=== PATIENT | female | born 1990 | race Caucasian/White ===

== ENCOUNTER 2019-08-17 18:56 | Emergency (ER) | payer MEDICAID ==
[~2019-08-17] VITALS: Ht 185.4 cm; Wt 131.5 kg
[2019-08-17 20:21] LABS: URINE BILIRUBIN NEGATIVE (Negative); URINE BLOOD NEGATIVE (Negative); URINE CLARITY CLEAR; URINE COLOR YELLOW; URINE GLUCOSE-RANDOM NEGATIVE (Negative); URINE KETONES NEGATIVE (Negative); URINE LEUKOCYTES-REFLEX NEGATIVE (Negative); URINE NITRITE-REFLEX NEGATIVE (Negative); URINE PROTEIN NEGATIVE (Negative); URINE SPECIFIC GRAVITY 1.025 (1.005-1.030); URINE UROBILINOGEN 0.2 E.U./dl (0.2-1.0)
[2019-08-17 20:36] LABS: ABSOLUTE BASOPHILS 0.1 thou/uL (0.0-0.2); ABSOLUTE EOSINOPHILS 0.3 thou/uL (0.0-0.7); ABSOLUTE LYMPHOCYTES 3.3 thou/uL (0.8-5.3); ABSOLUTE MONOCYTES 0.6 thou/uL (0.0-1.2); ABSOLUTE NEUTROPHILS 7.9 thou/uL (1.6-8.1); EOSINOPHILS 2.2 %; HEMATOCRIT 39.6 % (37.0-47.0); HEMOGLOBIN 13.3 gm/dL (12.0-15.0); LYMPHOCYTES 27.3 %; MCH 26.5 pg (26.0-34.0); MCHC 33.6 g/dL (28.0-37.0); MCV 78.9 fL (80.0-100.0); MPV 8.4 fl. (7.2-11.1); NUCLEATED RBCS 0 /100WBC; PLATELET COUNT* 365 thou/uL (150-400); POLYS 64.5 %; RBC 5.02 mil/uL (4.20-5.00); RDW-CV 14.3 % (10.5-14.5); WBC 12.2 thou/uL (4.0-11.0)
[2019-08-17 20:48] LABS: CALCIUM 9.1 mg/dL (8.5-10.1); CREATININE 0.9 mg/dL (0.6-1.3); POTASSIUM 3.9 mmol/L (3.5-5.1)
[2019-08-17 20:52] LABS: ALBUMIN 3.4 g/dL (3.4-5.0); TOTAL BILIRUBIN 0.1 mg/dL (<0.1-1.0); TOTAL PROTEIN 8.4 g/dL (6.4-8.2)
[2019-08-17] MEDS ORDERED: TRAMADOL 50 MG50 MG PO (21:15)
[2019-08-17] MEDS ORDERED: GABAPENTIN 100100 MG PO (21:15)
[2019-08-17 21:32] VITALS: BP 143/80
== END 2019-08-17 21:33 | disposition home or self-care (01) ==
LOC: M.ERS 18:56
PROVIDERS: Emergency Medicine
DX: M79.672 Pain in left foot (principal)

== ENCOUNTER 2019-08-25 17:28 | Emergency (ER) | payer MEDICAID ==
[~2019-08-25] VITALS: Ht 185.4 cm; Wt 130.2 kg
[~2019-08-25 17:28] MED LIST: GABAPENTIN 100100 MG PO; TRAMADOL 50 MG50 MG PO
[2019-08-25] MEDS ORDERED: PREDNISONE 10 M10 MG PO (17:59)
[2019-08-25] MEDS ORDERED: NABUMETONE 750750 M1 PO (17:59)
[2019-08-25 18:11] VITALS: BP 133/90
== END 2019-08-25 18:12 | disposition home or self-care (01) ==
LOC: M.ERS 17:28
DX: M79.671 Pain in right foot (principal); M79.672 Pain in left foot

== ENCOUNTER 2019-09-01 10:06 | Emergency (ER) | payer MEDICAID ==
[~2019-09-01] VITALS: Ht 185.4 cm; Wt 130.6 kg
[~2019-09-01 10:06] MED LIST changes: +NABUMETONE 750750 M1 PO; +PREDNISONE 10 M10 MG PO
[2019-09-01 10:31] LABS: URINE BILIRUBIN NEGATIVE (Negative); URINE BLOOD NEGATIVE (Negative); URINE CLARITY CLEAR; URINE COLOR YELLOW; URINE GLUCOSE-RANDOM NEGATIVE (Negative); URINE KETONES NEGATIVE (Negative); URINE LEUKOCYTES-REFLEX NEGATIVE (Negative); URINE NITRITE-REFLEX NEGATIVE (Negative); URINE PROTEIN NEGATIVE (Negative); URINE UROBILINOGEN 0.2 E.U./dl (0.2-1.0)
[2019-09-01 10:36] LABS: ABSOLUTE BASOPHILS 0.1 thou/uL (0.0-0.2); ABSOLUTE EOSINOPHILS 0.1 thou/uL (0.0-0.7); ABSOLUTE LYMPHOCYTES 2.5 thou/uL (0.8-5.3); ABSOLUTE MONOCYTES 0.8 thou/uL (0.0-1.2); ABSOLUTE NEUTROPHILS 10.4 thou/uL (1.6-8.1); BASOPHILS 0.5 %; EOSINOPHILS 0.8 %; HEMATOCRIT 43.6 % (37.0-47.0); HEMOGLOBIN 14.6 gm/dL (12.0-15.0); MCH 26.5 pg (26.0-34.0); MCHC 33.4 g/dL (28.0-37.0); MCV 79.4 fL (80.0-100.0); MONOCYTES 5.7 %; MPV 8.5 fl. (7.2-11.1); NUCLEATED RBCS 0 /100WBC; PLATELET COUNT* 290 thou/uL (150-400); RBC 5.49 mil/uL (4.20-5.00); RDW-CV 14.5 % (10.5-14.5); WBC 13.8 thou/uL (4.0-11.0)
[2019-09-01 10:39] LABS: AMP/METHAMP Negative (Negative); BARBITURATES Negative (Negative); BENZODIAZEPINES Negative (Negative); COCAINE Negative (Negative); METHADONE Negative (Negative); OPIATES Negative (Negative); PCP Negative (Negative); THC Negative (Negative)
[2019-09-01 10:44] LABS: CALCIUM 9.5 mg/dL (8.5-10.1); CREATININE 1.1 mg/dL (0.6-1.3)
[2019-09-01 10:48] LABS: ALBUMIN 3.2 g/dL (3.4-5.0); TOTAL BILIRUBIN 0.4 mg/dL (<0.1-1.0); TOTAL PROTEIN 8.1 g/dL (6.4-8.2)
[2019-09-01] MEDS ORDERED: BENTYL 20 MG TA20 M1 PO (12:19)
[2019-09-01] MEDS ORDERED: ONDANSETRON HCL4 M2 PO (12:19)
[2019-09-01 12:39] VITALS: BP 114/66
--- NOTE | 2019-09-01 16:08 | EKG ---
[place] [address] ELECTROCARDIOGRAM REPORT Name: ERICKSON WYNNE Room: [facility]#: [id number] Admission: 09/01/19 Attend Phys: Discharge: 09/01/19 Date of : 89 Report #: [id number] THIS REPORT FOR: //name// [facility] ED Test Date: 2019-09-01 Test Time: 10:13:01 Pat Name: ERICKSON WYNNE Department: Room: Gender: F Biological Engineer: : 1990 Requested By: Nakia Henriquez Order Number: [id number] MD: Antoine Melvin Measurements Intervals [place] Rate: 93 P: 37 DE: 128 QRS: 33 QRSD: 83 T: 26 QT: 330 QTc: 411 Interpretive Statements Sinus rhythm No previous ECG available for comparison Electronically Signed On 09-01-2019 16:08:23 CDT by Antoine Melvin [email or web address] <ELECTRONICALLY SIGNED> By: Antoine Melvin MD, [facility] 09/01/19 1608 1013 1013 Atnoine Melvin MD, FACC /EPI
== END 2019-09-01 12:40 | disposition home or self-care (01) ==
LOC: M.ERS 10:06
PROVIDERS: Nurse Practitioner Family
DX: K52.9 Noninfective gastroenteritis and colitis, unspecified (principal)

== ENCOUNTER 2020-12-30 17:20 | Inpatient (IN) | payer MEDICAID ==
[~2020-12-30] VITALS: Ht 180.3 cm; Wt 115.3 kg
[2020-12-30 17:20] VITALS: BP 151/83
[~2020-12-30 17:20] MED LIST changes: +BENTYL 20 MG TA20 M1 PO; +ONDANSETRON HCL4 M2 PO
[2020-12-30 17:52] LABS: URINE BILIRUBIN NEGATIVE (Negative); URINE BLOOD NEGATIVE (Negative); URINE CLARITY CLEAR; URINE COLOR YELLOW; URINE GLUCOSE-RANDOM NEGATIVE (Negative); URINE KETONES NEGATIVE (Negative); URINE LEUKOCYTES-REFLEX NEGATIVE (Negative); URINE NITRITE-REFLEX NEGATIVE (Negative); URINE PROTEIN TRACE (Negative); URINE SPECIFIC GRAVITY 1.025 (1.005-1.030); URINE UROBILINOGEN 0.2 E.U./dl (0.2-1.0)
[2020-12-30 18:01] LABS: AMP/METHAMP Negative (Negative); BARBITURATES Negative (Negative); BENZODIAZEPINES Negative (Negative); COCAINE Negative (Negative); METHADONE Negative (Negative); OPIATES Negative (Negative); PCP Negative (Negative); THC Negative (Negative)
[2020-12-30 18:44] LABS: ABSOLUTE BASOPHILS 0.1 thou/uL (0.0-0.2); ABSOLUTE EOSINOPHILS 0.3 thou/uL (0.0-0.7); ABSOLUTE LYMPHOCYTES 3.2 thou/uL (0.8-5.3); ABSOLUTE NEUTROPHILS 12.1 thou/uL (1.6-8.1); BASOPHILS 0.8 %; EOSINOPHILS 1.7 %; HEMATOCRIT 44.5 % (37.0-47.0); HEMOGLOBIN 14.8 gm/dL (12.0-15.0); LYMPHOCYTES 19.2 %; MCH 26.9 pg (26.0-34.0); MCHC 33.3 g/dL (28.0-37.0); MCV 80.9 fL (80.0-100.0); MONOCYTES 6.2 %; MPV 7.7 fl. (7.2-11.1); NUCLEATED RBCS 0 /100WBC; PLATELET COUNT* 205 thou/uL (150-400); POLYS 72.1 %; RDW-CV 15.4 % (10.5-14.5); WBC 16.8 thou/uL (4.0-11.0)
[2020-12-30 18:55] LABS: CALCIUM 9.6 mg/dL (8.5-10.1); CREATININE 0.9 mg/dL (0.6-1.3); POTASSIUM 4.1 mmol/L (3.5-5.1)
[2020-12-30 19:10] LABS: ALBUMIN 3.5 g/dL (3.4-5.0); CK-MB MASS 5.9 ng/mL (<0.5-3.6); TOTAL BILIRUBIN 0.4 mg/dL (<0.1-1.0); TOTAL PROTEIN 9.4 g/dL (6.4-8.2)
[2020-12-30 20:50] VITALS: BP 140/54
[2020-12-30 21:36] VITALS: BP 150/78
[2020-12-30 22:43] LABS: APTT 26.8 Seconds (25.0-31.3); INR 1.1; PROTIME 11.4 Seconds (9.20-11.50)
[2020-12-30 23:34] VITALS: BP 130/75
[2020-12-31 04:27] VITALS: BP 131/69
[2020-12-31 04:37] LABS: HEMATOCRIT 34.8 % (37.0-47.0); MCH 26.2 pg (26.0-34.0); MCHC 33.1 g/dL (28.0-37.0); MCV 79.1 fL (80.0-100.0); MPV 7.9 fl. (7.2-11.1); RBC 4.39 mil/uL (4.20-5.00); RDW-CV 15.2 % (10.5-14.5); WBC 13.6 thou/uL (4.0-11.0)
[2020-12-31 05:08] LABS: CALCIUM 8.6 mg/dL (8.5-10.1); CREATININE 0.7 mg/dL (0.6-1.3); POTASSIUM 3.7 mmol/L (3.5-5.1)
[2020-12-31 06:03] LABS: HEMOGLOBIN 11.5 gm/dL (12.0-15.0)
[2020-12-31] MEDS ORDERED: ZOLOFT50 M1 PO (09:11)
[2020-12-31 12:00] VITALS: BP 132/50
[2020-12-31 17:15] VITALS: BP 135/75
[2020-12-31 20:30] VITALS: BP 138/81
[2020-12-31 23:36] VITALS: BP 135/77
[2020-12-31 23:41] LABS: HEMATOCRIT 34.3 % (37.0-47.0); HEMOGLOBIN 11.3 gm/dL (12.0-15.0); MCH 26.4 pg (26.0-34.0); MCV 79.9 fL (80.0-100.0); MPV 7.7 fl. (7.2-11.1); RBC 4.3 mil/uL (4.20-5.00); RDW-CV 15.1 % (10.5-14.5); WBC 15.1 thou/uL (4.0-11.0)
[2020-12-31 23:44] LABS: CREATININE 0.7 mg/dL (0.6-1.3); POTASSIUM 3.9 mmol/L (3.5-5.1)
[2021-01-01] VITALS (7 sets, daily range): BP systolic 113–165; BP diastolic 69–91
[2021-01-01 11:54] LABS: INFLUENZA A ANTIGEN Negative (Negative); INFLUENZA B ANTIGEN Negative (Negative)
[2021-01-02 04:00] VITALS: BP 118/71
[2021-01-02 08:00] VITALS: BP 140/78
--- NOTE | 2021-01-02 11:02 | EKG ---
[place] [address] ELECTROCARDIOGRAM REPORT Name: ERICKSON WYNNE Room: [address] ADM IN .R.#: [id number] Admission: 12/30/20 Attend Phys: Shalini Joseph MD Discharge: Date of : 89 Date of Service: 12/30/20 1749 Report #: [id number] THIS REPORT FOR: //name// [facility] ED Test Date: 2020-12-30 Test Time: 17:49:08 Pat Name: ERICKSON WYNNE Department: Room: [facility] Gender: F Engineer Automated Equipment: charito : 1990 Requested By: Cyrus Viera Order Number: [id number] MD: Antoine Melvin Measurements Intervals [place] Rate: 91 P: 80 UT: 113 QRS: 60 QRSD: 100 T: 62 QT: 356 QTc: 439 Interpretive Statements Sinus rhythm Borderline short UT interval Baseline wander in lead(s) V1 Compared to ECG 09/01/2019 10:13:01 No significant changes Electronically Signed On 01-02-2021 11:02:32 [employer] by Antoine Melvin [email or web address] <ELECTRONICALLY SIGNED> By: Antoine Melvin MD, [facility] 01/02/21 1102 1749 1749 Antoine Melvin MD, [facility] /EPI
[2021-01-02 12:00] VITALS: BP 130/89
[2021-01-02] MEDS ORDERED: PROAIR HFA8.5 GM INH (13:24)
[2021-01-02 20:00] VITALS: BP 151/86
[2021-01-03] VITALS (7 sets, daily range): BP systolic 122–136; BP diastolic 64–81
[2021-01-03 08:10] LABS: ABSOLUTE BASOPHILS 0.3 thou/uL (0.0-0.2); ABSOLUTE EOSINOPHILS 0.2 thou/uL (0.0-0.7); ABSOLUTE MONOCYTES 1.2 thou/uL (0.0-1.2); ABSOLUTE NEUTROPHILS 14.9 thou/uL (1.6-8.1); BASOPHILS 1.5 %; EOSINOPHILS 0.9 %; HEMATOCRIT 34.4 % (37.0-47.0); HEMOGLOBIN 11.3 gm/dL (12.0-15.0); LYMPHOCYTES 15.3 %; MCH 26.2 pg (26.0-34.0); MCHC 32.9 g/dL (28.0-37.0); MCV 79.7 fL (80.0-100.0); MONOCYTES 6.2 %; MPV 7.9 fl. (7.2-11.1); NUCLEATED RBCS 0 /100WBC; PLATELET COUNT* 226 thou/uL (150-400); POLYS 76.1 %; RBC 4.32 mil/uL (4.20-5.00); RDW-CV 15.2 % (10.5-14.5); WBC 19.6 thou/uL (4.0-11.0)
[2021-01-03 08:14] LABS: CALCIUM 7.9 mg/dL (8.5-10.1); CREATININE 0.8 mg/dL (0.6-1.3); POTASSIUM 4.6 mmol/L (3.5-5.1)
[2021-01-03 08:18] LABS: TOTAL BILIRUBIN 0.5 mg/dL (<0.1-1.0)
--- NOTE | 2021-01-03 13:42 | 2DMMODE ---
[place] [address] 2 D/M-MODE ECHOCARDIOGRAM Name: SHERRELLERICKSON JEREMY Room: [address] IN [facility].#: [id number] Admission: 12/30/20 Attend Phys: Shalini Joseph MD Discharge: Date of : 89 Date of Service: 01/03/21 1342 Report #: [id number] THIS REPORT FOR: cc: FAM - No family physician/PCP FAM - No family physician/PCP Nestor Hogue MD [facility] ~ APPROVED REPORT Study performed: 01/03/2021 10:23:11 EXAM: Comprehensive 2D, Doppler, and color-flow Echocardiogram Patient Location: In-Patient Room #: [facility] Status: routine BSA: 2.21 HR: 129 bpm BP: 131/71 mmHg Rhythm: Tachycardia Other Information Study Quality: Good Indications Tachycardia 2D Dimensions IVSd: 8.35 (7-11mm) LVOT Diam: 19.44 (18-24mm) LVDd: 38.01 mm PWd: 9.20 (7-11mm) Ascending Ao: 27.23 (22-36mm) LVDs: 24.63 (25-40mm) Aortic Root: 27.35 mm Volumes Left Atrial Volume (Systole) LA ESV Index: 12.80 mL/m2 Aortic Valve AoV Peak Melo.: 1.58 m/s AO Peak Gr.: 9.99 mmHg LVOT Max P.63 mmHg AO Mean Gr.: 5.55 mmHg LVOT Mean P.62 mmHg LVOT Max V: 1.38 m/s AO V2 VTI: 19.21 cm LVOT Mean V: 0.88 m/s AMA (VTI): 2.43 cm2 LVOT V1 VTI: 15.71 [place] [address] 2 D/M-MODE ECHOCARDIOGRAM Name: ERICKSON WYNNE [facility] Room: [address] IN [facility]#: [id number] Admission: 12/30/20 Attend Phys: Shalini Joseph MD Discharge: Date of : 89 Date of Service: 01/03/21 1342 Report #: [id number] Pulmonary Valve PV Peak Melo.: 1.01 m/s PV Peak Gr.: 4.08 mmHg Tricuspid Valve RAP Estimate: 5.00 mmHg TR Peak Gr.: 35.09 mmHg RVSP: 40.00 mmHg PA Pressure: 40.00 mmHg Left Ventricle The left ventricle is normal size. There is normal LV segmental wall motion. There is normal left ventricular wall thickness. Left ventricular systolic function is normal. LVEF is 60-65%. The left ventricular diastolic function is normal. Right Ventricle Right ventricle is dilated. The right ventricular systolic function is normal. Atria The left atrium size is normal. Right atrium is dilated. Aortic Valve The aortic valve is normal in structure. No aortic regurgitation is present. There is no aortic valvular stenosis. Mitral Valve The mitral valve is normal in structure. There is no mitral valve regurgitation noted. No evidence of mitral valve stenosis. Tricuspid Valve The tricuspid valve is normal in structure. Mild tricuspid regurgitation. Mild to Moderate pulmonary hypertension. Right ventricular systolic pressure is normal. Pulmonic Valve The pulmonary valve is normal in structure. There is no pulmonic valvular regurgitation. Great Vessels The aortic root is normal in size. IVC is normal in size and collapses >50% with inspiration. Pericardium There is no pericardial effusion. <Conclusion> [place] [address] 2 D/M-MODE ECHOCARDIOGRAM Name: ERICKSON WYNNE Room: [address] IN M.R.#: [id number] Admission: 12/30/20 Attend Phys: Shalini Joseph MD Discharge: Date of : 89 Date of Service: 01/03/21 1342 Report #: [id number] The left ventricle is normal size. There is normal left ventricular wall thickness. Left ventricular systolic function is normal. LVEF is 60-65%. The left ventricular diastolic function is normal. Right ventricle is dilated. Right atrium is dilated. Mild tricuspid regurgitation. Mild to Moderate pulmonary hypertension. Right ventricular systolic pressure is normal. IVC is normal in size and collapses >50% with inspiration. <ELECTRONICALLY SIGNED> By: Nestor Hogue MD, FACC 01/03/21 134 41 41 Nestor Hogue MD, FACC /INF
[2021-01-04 04:00] VITALS: BP 126/67
[2021-01-04 07:45] LABS: HEMATOCRIT 32.5 % (37.0-47.0); HEMOGLOBIN 10.7 gm/dL (12.0-15.0); MCH 26.3 pg (26.0-34.0); MCHC 32.8 g/dL (28.0-37.0); MCV 80.3 fL (80.0-100.0); MPV 8.1 fl. (7.2-11.1); RBC 4.05 mil/uL (4.20-5.00); RDW-CV 15.4 % (10.5-14.5); WBC 17.4 thou/uL (4.0-11.0)
[2021-01-04 07:57] LABS: ALBUMIN 1.9 g/dL (3.4-5.0); CALCIUM 7.9 mg/dL (8.5-10.1); CREATININE 0.6 mg/dL (0.6-1.3); MAGNESIUM 2.1 mg/dL (1.8-2.4); POTASSIUM 4.1 mmol/L (3.5-5.1); TOTAL BILIRUBIN 0.6 mg/dL (<0.1-1.0); TOTAL PROTEIN 6.8 g/dL (6.4-8.2)
[2021-01-04 11:53] VITALS: BP 122/71
[2021-01-04 16:08] VITALS: BP 117/75
[2021-01-04 20:00] VITALS: BP 126/71
[2021-01-04 23:53] VITALS: BP 123/74
[2021-01-05 04:11] VITALS: BP 119/63
[2021-01-05 04:48] LABS: ABSOLUTE BASOPHILS 0.1 thou/uL (0.0-0.2); ABSOLUTE EOSINOPHILS 0.4 thou/uL (0.0-0.7); ABSOLUTE LYMPHOCYTES 2.9 thou/uL (0.8-5.3); ABSOLUTE MONOCYTES 0.9 thou/uL (0.0-1.2); ABSOLUTE NEUTROPHILS 9.7 thou/uL (1.6-8.1); BASOPHILS 0.4 %; EOSINOPHILS 3.2 %; HEMATOCRIT 32.1 % (37.0-47.0); HEMOGLOBIN 10.4 gm/dL (12.0-15.0); LYMPHOCYTES 20.7 %; MCH 26.3 pg (26.0-34.0); MCHC 32.4 g/dL (28.0-37.0); MCV 81.1 fL (80.0-100.0); MONOCYTES 6.7 %; MPV 8.2 fl. (7.2-11.1); NUCLEATED RBCS 0 /100WBC; PLATELET COUNT* 293 thou/uL (150-400); RBC 3.96 mil/uL (4.20-5.00); RDW-CV 15.3 % (10.5-14.5); WBC 14.1 thou/uL (4.0-11.0)
[2021-01-05 05:21] LABS: ALBUMIN 1.8 g/dL (3.4-5.0); CALCIUM 8.5 mg/dL (8.5-10.1); CREATININE 0.6 mg/dL (0.6-1.3); MAGNESIUM 2.1 mg/dL (1.8-2.4); TOTAL BILIRUBIN 0.5 mg/dL (<0.1-1.0); TOTAL PROTEIN 6.7 g/dL (6.4-8.2)
[2021-01-05 08:30] VITALS: BP 137/90
[2021-01-05 11:42] VITALS: BP 104/56
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
[2021-01-05 16:27] VITALS: BP 130/77
[2021-01-05 20:00] VITALS: BP 129/74
[2021-01-05 23:39] VITALS: BP 109/62
[2021-01-06 04:25] LABS: ABSOLUTE BASOPHILS 0.1 thou/uL (0.0-0.2); ABSOLUTE EOSINOPHILS 0.4 thou/uL (0.0-0.7); ABSOLUTE MONOCYTES 0.9 thou/uL (0.0-1.2); ABSOLUTE NEUTROPHILS 10.2 thou/uL (1.6-8.1); BASOPHILS 0.7 %; HEMATOCRIT 31.1 % (37.0-47.0); HEMOGLOBIN 10.3 gm/dL (12.0-15.0); LYMPHOCYTES 20.2 %; MCH 26.6 pg (26.0-34.0); MCV 80.4 fL (80.0-100.0); MONOCYTES 6.5 %; MPV 7.9 fl. (7.2-11.1); NUCLEATED RBCS 0 /100WBC; PLATELET COUNT* 348 thou/uL (150-400); POLYS 69.6 %; RBC 3.86 mil/uL (4.20-5.00); RDW-CV 15.2 % (10.5-14.5); WBC 14.6 thou/uL (4.0-11.0)
[2021-01-06 04:53] VITALS: BP 125/73
[2021-01-06 05:00] LABS: CALCIUM 8.7 mg/dL (8.5-10.1); CREATININE 0.6 mg/dL (0.6-1.3); MAGNESIUM 2.2 mg/dL (1.8-2.4); POTASSIUM 3.6 mmol/L (3.5-5.1); TOTAL BILIRUBIN 0.5 mg/dL (<0.1-1.0); TOTAL PROTEIN 6.8 g/dL (6.4-8.2)
[2021-01-06 08:00] VITALS: BP 136/70
[2021-01-06 12:00] VITALS: BP 117/67
[2021-01-06 17:22] VITALS: BP 127/68
[2021-01-06 20:00] VITALS: BP 123/63
[2021-01-06 23:52] VITALS: BP 117/56
[2021-01-07 04:22] VITALS: BP 137/79
[2021-01-07 04:52] LABS: HEMATOCRIT 33.2 % (37.0-47.0); HEMOGLOBIN 10.8 gm/dL (12.0-15.0); MCH 26.5 pg (26.0-34.0); MCHC 32.7 g/dL (28.0-37.0); MCV 81.1 fL (80.0-100.0); MPV 7.6 fl. (7.2-11.1); RBC 4.09 mil/uL (4.20-5.00); RDW-CV 15.5 % (10.5-14.5)
[2021-01-07 05:36] LABS: ALBUMIN 2.1 g/dL (3.4-5.0); CREATININE 0.7 mg/dL (0.6-1.3); MAGNESIUM 2.1 mg/dL (1.8-2.4); POTASSIUM 4.2 mmol/L (3.5-5.1); TOTAL BILIRUBIN 0.2 mg/dL (<0.1-1.0)
[2021-01-07 09:01] VITALS: BP 119/57
[2021-01-07 13:00] VITALS: BP 126/58
[2021-01-07 17:26] VITALS: BP 125/74
[2021-01-07 20:00] VITALS: BP 119/68
[2021-01-08] VITALS: BP 117/61
[2021-01-08 04:00] VITALS: BP 125/61
[2021-01-08 04:21] LABS: HEMOGLOBIN 10.5 gm/dL (12.0-15.0); MCHC 31.9 g/dL (28.0-37.0); MCV 81.5 fL (80.0-100.0); MPV 7.4 fl. (7.2-11.1); RBC 4.04 mil/uL (4.20-5.00); RDW-CV 15.2 % (10.5-14.5); WBC 13.2 thou/uL (4.0-11.0)
[2021-01-08 04:38] LABS: CALCIUM 9.1 mg/dL (8.5-10.1); CREATININE 0.6 mg/dL (0.6-1.3); POTASSIUM 4.1 mmol/L (3.5-5.1)
[2021-01-08 08:00] VITALS: BP 123/75
[2021-01-08 15:06] LABS: ANA INTERPRETATION Negative (Negative)
[2021-01-08 17:30] VITALS: BP 102/62
[2021-01-08 20:00] VITALS: BP 115/73
[2021-01-08 23:44] VITALS: BP 106/58
[2021-01-09 04:04] VITALS: BP 113/64
[2021-01-09 08:00] VITALS: BP 132/80
[2021-01-09 11:40] VITALS: BP 132/80
[2021-01-09 16:29] VITALS: BP 136/78
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
[2021-01-09 20:00] VITALS: BP 115/77
[2021-01-10 00:41] VITALS: BP 103/63
[2021-01-10 04:54] VITALS: BP 127/72
[2021-01-10 08:35] VITALS: BP 108/50
[2021-01-10 12:00] VITALS: BP 115/57
[2021-01-10 16:00] VITALS: BP 109/60
[2021-01-10 23:42] VITALS: BP 104/60
[2021-01-11 04:13] VITALS: BP 114/63
[2021-01-11 08:00] VITALS: BP 118/63
[2021-01-11 11:19] VITALS: BP 108/48
[2021-01-11 16:41] VITALS: BP 114/63
[2021-01-11 20:00] VITALS: BP 119/64
[2021-01-12 00:35] VITALS: BP 105/57
[2021-01-12 04:19] VITALS: BP 96/53
[2021-01-12 08:00] VITALS: BP 104/50
[2021-01-12] MEDS ORDERED: LOPRESSOR50 PO (10:04)
[2021-01-12] MEDS ORDERED: ACETAMINOPHEN325 M1 PO (10:04)
[2021-01-12] MEDS ORDERED: MUCINEX600 MG PO (10:04)
[2021-01-12] MEDS ORDERED: XANAX 0.25 MG0.25 MG PO (10:04)
[2021-01-12] MEDS ORDERED: XARELTO20 MG PO (10:04)
[2021-01-12] MEDS ORDERED: THERAHONEY TOP (10:04)
[2021-01-12] MEDS ORDERED: SENEXON-S 50-81 EACH PO (10:04)
[2021-01-12] MEDS ORDERED: TRAMADOL 50 MG50 MG PO (10:04)
[2021-01-12] MEDS ORDERED: MELATONIN5 M1 PO (10:04)
[2021-01-12] MEDS ORDERED: PROTONIX40 M2 PO (10:04)
[2021-01-12 12:25] VITALS: BP 97/60
[2021-01-12 17:07] VITALS: BP 111/64
[2021-01-12 19:45] VITALS: BP 115/62
[2021-01-13] VITALS (7 sets, daily range): BP systolic 99–123; BP diastolic 49–68
[2021-01-14 04:00] VITALS: BP 129/60
[2021-01-14 08:00] VITALS: BP 117/55
[2021-01-14 12:13] VITALS: BP 117/70
[2021-01-14 16:00] VITALS: BP 115/66
[2021-01-14 19:45] VITALS: BP 119/56
[2021-01-15] VITALS: BP 119/72
[2021-01-15 04:00] VITALS: BP 102/41
[2021-01-15 08:00] VITALS: BP 135/84
[2021-01-15 12:00] VITALS: BP 119/79; BP 134/81
[2021-01-15 14:48] LABS: URINE BILIRUBIN NEGATIVE (Negative); URINE BLOOD NEGATIVE (Negative); URINE CLARITY CLEAR; URINE COLOR YELLOW; URINE GLUCOSE-RANDOM NEGATIVE (Negative); URINE KETONES NEGATIVE (Negative); URINE LEUKOCYTES NEGATIVE (Negative); URINE NITRITE NEGATIVE (Negative); URINE PROTEIN NEGATIVE (Negative)
[2021-01-15 16:00] VITALS: BP 108/57
[2021-01-15 20:00] VITALS: BP 116/55
[2021-01-16 00:19] VITALS: BP 96/62
[2021-01-16 04:40] VITALS: BP 92/50
[2021-01-16 12:18] VITALS: BP 116/61
[2021-01-16 16:00] VITALS: BP 118/67
[2021-01-16 20:00] VITALS: BP 117/65
[2021-01-17 00:15] VITALS: BP 95/50
[2021-01-17 04:02] VITALS: BP 115/58
[2021-01-17 08:00] VITALS: BP 122/61
[2021-01-17 11:20] VITALS: BP 132/76
[2021-01-17 16:13] VITALS: BP 125/78
[2021-01-17 20:00] VITALS: BP 134/85
[2021-01-18 02:33] VITALS: BP 106/58
[2021-01-18 05:59] VITALS: BP 131/81
[2021-01-18 08:00] VITALS: BP 115/73
[2021-01-18 12:00] VITALS: BP 132/71
[2021-01-18 17:51] VITALS: BP 108/64
[2021-01-18 20:15] VITALS: BP 100/47
[2021-01-19] VITALS: BP 121/68
[2021-01-19 03:36] VITALS: BP 125/51
[2021-01-19] MEDS ORDERED: COLACE 100 MG100 MG PO (08:33)
[2021-01-19] MEDS ORDERED: MIRALAX17 GM PO (08:33)
[2021-01-19] MEDS ORDERED: XANAX 0.25 MG0.25 MG PO (08:36)
[2021-01-19] MEDS ORDERED: TRAMADOL 50 MG50 MG PO (08:36)
[2021-01-19 09:43] VITALS: BP 134/65
[2021-01-19 12:34] VITALS: BP 118/64
== END 2021-01-19 13:48 | DRG 175 ==
LOC: M.ERS 17:20 → M.TBA-ER 18:00 → M.2W 18:00
PROVIDERS: Family Medicine; Internal Medicine; Internal Medicine Critical Care Medicine; ADMIT Family Medicine; ATTEND Family Medicine
DX: I26.09 Other pulmonary embolism with acute cor pulmonale (principal); G93.41 Metabolic encephalopathy; R53.2 Functional quadriplegia; I82.413 Acute embolism and thrombosis of femoral vein, bilateral; M62.82 Rhabdomyolysis; F84.0 Autistic disorder; E46 Unspecified protein-calorie malnutrition; R65.10 Systemic inflammatory response syndrome (SIRS) of non-infectious origin without acute organ dysfunction; I82.433 Acute embolism and thrombosis of popliteal vein, bilateral; D64.9 Anemia, unspecified; E66.9 Obesity, unspecified; T17.990A Other foreign object in respiratory tract, part unspecified in causing asphyxiation, initial encounter; Y93.89 Activity, other specified; L89.159 Pressure ulcer of sacral region, unspecified stage; G35 Multiple sclerosis; I27.20 Pulmonary hypertension, unspecified; L89.329 Pressure ulcer of left buttock, unspecified stage; Z20.822 Contact with and (suspected) exposure to COVID-19; Z68.35 Body mass index [BMI] 35.0-35.9, adult; X58.XXXA Exposure to other specified factors, initial encounter; Y92.89 Other specified places as the place of occurrence of the external cause; Y99.8 Other external cause status; J98.2 Interstitial emphysema; Z28.21 Immunization not carried out because of patient refusal

== ENCOUNTER 2021-03-31 08:31 | Inpatient (IN) | payer MEDICAID ==
[~2021-03-31] VITALS: Ht 152.4 cm; Wt 86.2 kg
[~2021-03-31 08:31] MED LIST changes: +ACETAMINOPHEN325 M1 PO; +COLACE 100 MG100 MG PO; +LOPRESSOR50 PO; +MELATONIN5 M1 PO; +MIRALAX17 GM PO; +MUCINEX600 MG PO; +PROAIR HFA8.5 GM INH; +PROTONIX40 M2 PO; +SENEXON-S 50-81 EACH PO; +THERAHONEY TOP; +XANAX 0.25 MG0.25 MG PO; +XARELTO20 MG PO; +ZOLOFT50 M1 PO
[2021-03-31 08:32] VITALS: BP 119/71
[2021-03-31] MEDS ORDERED: SERTRALINE HCL100 MG PO (08:41)
[2021-03-31] MEDS ORDERED: VITAMIN C500 M1 PO (08:43)
[2021-03-31] MEDS ORDERED: BACLOFEN 10MG T10 MG PO (08:43)
[2021-03-31 09:08] LABS: ABSOLUTE BASOPHILS 0.1 thou/uL (0.0-0.2); ABSOLUTE LYMPHOCYTES 2.2 thou/uL (0.8-5.3); ABSOLUTE MONOCYTES 1.2 thou/uL (0.0-1.2); ABSOLUTE NEUTROPHILS 12.8 thou/uL (1.6-8.1); BASOPHILS 0.7 %; HEMATOCRIT 32.5 % (37.0-47.0); HEMOGLOBIN 10.8 gm/dL (12.0-15.0); LYMPHOCYTES 13.4 %; MCHC 33.3 g/dL (28.0-37.0); MCV 77.9 fL (80.0-100.0); MONOCYTES 7.4 %; MPV 7.2 fl. (7.2-11.1); NUCLEATED RBCS 0 /100WBC; PLATELET COUNT* 293 thou/uL (150-400); POLYS 78.5 %; RBC 4.17 mil/uL (4.20-5.00); RDW-CV 14.2 % (10.5-14.5); WBC 16.3 thou/uL (4.0-11.0)
[2021-03-31 09:16] LABS: CALCIUM 8.9 mg/dL (8.5-10.1); CREATININE 0.9 mg/dL (0.6-1.3); POTASSIUM 3.8 mmol/L (3.5-5.1)
[2021-03-31 09:21] LABS: ALBUMIN 2.2 g/dL (3.4-5.0); TOTAL BILIRUBIN 0.7 mg/dL (<0.1-1.0); TOTAL PROTEIN 7.4 g/dL (6.4-8.2)
[2021-03-31 10:51] LABS: URINE BILIRUBIN NEGATIVE (Negative); URINE GLUCOSE-RANDOM 1+ (Negative); URINE KETONES NEGATIVE (Negative)
[2021-03-31 10:52] LABS: URINE BLOOD 3+ (Negative)
[2021-03-31 10:53] LABS: URINE LEUKOCYTES 3+ (Negative); URINE NITRITE NEGATIVE (Negative); URINE PROTEIN 3+ (Negative); URINE UROBILINOGEN 0.2 E.U./dl (0.2-1.0)
[2021-03-31 10:54] LABS: SQUAMOUS 0-3 Few /LPF (0-3); URINE CLARITY TURBID; URINE COLOR DARK YELLOW
[2021-03-31 10:56] LABS: BACTERIA >30 Many /HPF (None Seen); CASTS None Seen /LPF (None Seen); URINE RBC 3-10 Few /HPF (0-2)
[2021-03-31 10:57] LABS: AMORPHOUS URATES Many /LPF (None Seen); CRYSTALS None Seen /LPF (None Seen)
[2021-03-31 14:30] VITALS: BP 109/52
[2021-03-31 15:18] VITALS: BP 97/41
[2021-03-31 21:00] VITALS: BP 128/62
[2021-04-01 00:47] VITALS: BP 108/55
[2021-04-01 05:30] LABS: ABSOLUTE LYMPHOCYTES 1.6 thou/uL (0.8-5.3); ABSOLUTE MONOCYTES 0.8 thou/uL (0.0-1.2); ABSOLUTE NEUTROPHILS 7.3 thou/uL (1.6-8.1); BASOPHILS 0.5 %; EOSINOPHILS 0.1 %; HEMATOCRIT 29.6 % (37.0-47.0); HEMOGLOBIN 9.8 gm/dL (12.0-15.0); LYMPHOCYTES 16.3 %; MCH 26.6 pg (26.0-34.0); MCHC 33.2 g/dL (28.0-37.0); MCV 80.1 fL (80.0-100.0); MONOCYTES 8.3 %; MPV 7.3 fl. (7.2-11.1); NUCLEATED RBCS 0 /100WBC; POLYS 74.8 %; RBC 3.69 mil/uL (4.20-5.00); RDW-CV 14.5 % (10.5-14.5); WBC 9.8 thou/uL (4.0-11.0)
[2021-04-01 06:23] LABS: PLATELET COUNT* 211 thou/uL (150-400)
[2021-04-01 06:54] LABS: CALCIUM 8.1 mg/dL (8.5-10.1); CREATININE 0.7 mg/dL (0.6-1.3); POTASSIUM 3.2 mmol/L (3.5-5.1)
[2021-04-01 08:00] VITALS: BP 131/76
[2021-04-01 16:00] VITALS: BP 135/69
[2021-04-01 21:38] VITALS: BP 124/67
[2021-04-02 03:52] LABS: ABSOLUTE EOSINOPHILS 0.1 thou/uL (0.0-0.7); ABSOLUTE MONOCYTES 0.9 thou/uL (0.0-1.2); ABSOLUTE NEUTROPHILS 4.5 thou/uL (1.6-8.1); BASOPHILS 0.4 %; HEMATOCRIT 27.2 % (37.0-47.0); HEMOGLOBIN 9.1 gm/dL (12.0-15.0); LYMPHOCYTES 35.6 %; MCH 26.6 pg (26.0-34.0); MCHC 33.4 g/dL (28.0-37.0); MCV 79.8 fL (80.0-100.0); MONOCYTES 10.6 %; MPV 7.4 fl. (7.2-11.1); NUCLEATED RBCS 0 /100WBC; PLATELET COUNT* 206 thou/uL (150-400); POLYS 52.4 %; RBC 3.41 mil/uL (4.20-5.00); RDW-CV 14.2 % (10.5-14.5); WBC 8.6 thou/uL (4.0-11.0)
[2021-04-02 04:15] LABS: ALBUMIN 1.7 g/dL (3.4-5.0); CALCIUM 8.4 mg/dL (8.5-10.1); CREATININE 0.6 mg/dL (0.6-1.3); POTASSIUM 3.1 mmol/L (3.5-5.1); TOTAL BILIRUBIN 0.3 mg/dL (<0.1-1.0); TOTAL PROTEIN 6.2 g/dL (6.4-8.2)
[2021-04-02 08:00] VITALS: BP 120/68
[2021-04-02 16:00] VITALS: BP 122/70
[2021-04-02 21:45] VITALS: BP 121/66
[2021-04-03 09:15] VITALS: BP 126/72
[2021-04-03 16:05] VITALS: BP 138/80
[2021-04-03 20:08] VITALS: BP 113/62
[2021-04-04 07:42] VITALS: BP 110/59
[2021-04-04 16:00] VITALS: BP 139/52
[2021-04-04 21:11] VITALS: BP 129/68
[2021-04-05 08:05] VITALS: BP 117/54
[2021-04-05 17:21] VITALS: BP 99/64
[2021-04-06 00:12] VITALS: BP 102/47
[2021-04-06 04:00] VITALS: BP 114/61
[2021-04-06 04:55] LABS: HEMATOCRIT 30.5 % (37.0-47.0); HEMOGLOBIN 10.2 gm/dL (12.0-15.0); MCH 26.4 pg (26.0-34.0); MCHC 33.5 g/dL (28.0-37.0); MCV 78.8 fL (80.0-100.0); MPV 7.2 fl. (7.2-11.1); RBC 3.87 mil/uL (4.20-5.00); RDW-CV 14.7 % (10.5-14.5); WBC 14.2 thou/uL (4.0-11.0)
[2021-04-06 05:15] LABS: ALBUMIN 2.2 g/dL (3.4-5.0); CREATININE 0.5 mg/dL (0.6-1.3); MAGNESIUM 1.8 mg/dL (1.8-2.4); POTASSIUM 3.8 mmol/L (3.5-5.1); TOTAL BILIRUBIN 0.2 mg/dL (<0.1-1.0); TOTAL PROTEIN 7.4 g/dL (6.4-8.2)
[2021-04-06] MEDS ORDERED: ZINC SULFATE50 MG PO (09:30)
[2021-04-06] MEDS ORDERED: AUGMENTIN 875-1 EACH PO (09:30)
[2021-04-06 10:43] VITALS: BP 102/58
== END 2021-04-06 13:45 | DRG 871 ==
LOC: M.ERS 08:31 → M.TBA-ER 10:33 → M.ORTHSURG 10:33 → M.TBA-ER 11:29 → M.ORTHSURG 14:55
PROVIDERS: Emergency Medicine; Internal Medicine; ADMIT Internal Medicine; ATTEND Internal Medicine
DX: A41.9 Sepsis, unspecified organism (principal); L89.323 Pressure ulcer of left buttock, stage 3; G82.50 Quadriplegia, unspecified; T83.511A Infection and inflammatory reaction due to indwelling urethral catheter, initial encounter; E44.0 Moderate protein-calorie malnutrition; E87.1 Hypo-osmolality and hyponatremia; G82.20 Paraplegia, unspecified; L89.329 Pressure ulcer of left buttock, unspecified stage; R53.81 Other malaise; Z20.822 Contact with and (suspected) exposure to COVID-19; Z87.891 Personal history of nicotine dependence; Z68.37 Body mass index [BMI] 37.0-37.9, adult; Z86.711 Personal history of pulmonary embolism; Z86.718 Personal history of other venous thrombosis and embolism; Y83.8 Other surgical procedures as the cause of abnormal reaction of the patient, or of later complication, without mention of misadventure at the time of the procedure; Y92.89 Other specified places as the place of occurrence of the external cause